=== PATIENT | female | born 1970 | race Caucasian/White ===

== ENCOUNTER 2017-10-02 18:22 | Emergency (ER) | payer MEDICAID ==
[~2017-10-02 18:22] MED LIST: OXYC1SOL5 PO; prempro PO
[2017-10-02 19:10] VITALS: BP 158/72; PULSE 108; RESP 18; TEMP 98.8; O2SAT 98
--- NOTE | 2017-10-02 19:29 | PD ---
HPI Chief Complaint: Abdominal Pain Time Seen by Provider: 19:16 Travel History International Travel<30 days: No Contact w/Intl Traveler<30days: No Traveled to known affect area: No History of Present Illness HPI 47-year-old female here for evaluation of right-sided rib/flank pain as well as headache. The patient reports having this right rib pain/right upper quadrant abdominal pain/right flank pain for about a month. Initially the symptoms were intermittent, now the pain is constant. She describes the pain as sharp, moderate, worse with movements. No fevers or chills. No nausea or vomiting. No hemoptysis. No dyspnea. No recent travel or immobilization. No history of DVT or PE. Patient reports history of cholecystectomy and total abdominal hysterectomy. No other abdominal surgeries. She states that since yesterday she has been having an intermittent her head. She states the sensation is currently mild. PFSH Past Medical History Medical History: Denies Significant Hx Cancer: No Cardiovascular Problems: No Diabetes: No Diminished Hearing: No Endocrine: No Gastrointestinal Disorders: Yes (GALLSTONES) Genitourinary: No Hepatitis: No Hiatal Hernia: No Immune Disorder: No Medical other: No Musculoskeletal: No Neurologic: No Psychiatric: No Reproductive: Yes (MASS ON OVARY) Respiratory: No Thyroid Disease: No Tetanus Vaccination: Unknown Influenza Vaccination: No ?: Not : 1 Para: 1 Past Surgical History Abdominal Surgery: Yes (CHOLECYSTECTOMY) Body Medical Devices: NONE Cardiac Surgery: No Section: Yes (x1) Cholecystectomy: Yes Ear Surgery: No Endocrine Surgery: No Eye Surgery: No Genitourinary Surgery: No Gynecologic Surgery: Yes ( 1987) Hysterectomy: Yes Oral Surgery: No Social History Alcohol Use: No Tobacco Use: No Substance Use: No Allergies-Medications (Allergen,Severity, Reaction): Coded Allergies: No Known Allergies (Verified Adverse Reaction, Unknown, 10/02/17) Reported Meds & Prescriptions Reported Meds & Active Scripts Active No Active Prescriptions or Reported Medications Review of Systems Except as stated in HPI: all other systems reviewed are Neg Physical Exam Narrative GENERAL: Well-developed, well-nourished, overweight, comfortable, no apparent distress. SKIN: Focused skin assessment warm/dry. No rash. HEAD: Atraumatic. Normocephalic. EYES: Pupils equal and round. No scleral icterus. No injection or drainage. ENT: Mucous membranes pink and moist. NECK: Trachea midline. No JVD. CARDIOVASCULAR: Regular rate and rhythm. RESPIRATORY: No accessory muscle use. Clear to auscultation. Breath sounds equal bilaterally. GASTROINTESTINAL: Abdomen soft, nondistended. Mild epigastric and right upper quadrant tenderness without peritoneal signs. Rest of abdomen is soft and nontender. Normal bowel sounds. No hernias. MUSCULOSKELETAL: No obvious deformities. No clubbing. No cyanosis. No edema. Mild right CVA tenderness. No left CVA tenderness. NEUROLOGICAL: Awake and alert. No obvious cranial nerve deficits. Motor grossly within normal limits. Normal speech. PSYCHIATRIC: Appropriate mood and affect; insight and judgment normal. Data Data Last Documented VS Vital Signs Date Time Temp Pulse Resp B/P (MAP) Pulse Ox O2 Delivery O2 Flow Rate FiO2 10/02/17 19:35 16 100 Room Air 10/02/17 19:10 98.8 108 158/72 (100) Orders Orders Electrocardiogram (10/02/17 19:25) Complete Blood Count With Diff (10/02/17 19:25) Comprehensive Metabolic Panel (10/02/17 19:25) Prothrombin Time / Inr (Pt) (10/02/17 19:25) Act Partial Throm Time (Ptt) (10/02/17 19:25) Troponin I (10/02/17 19:25) Lipase (10/02/17 19:25) Ecg Monitoring (10/02/17 19:25) Bilateral Bp Monitoring (10/02/17 19:25) Iv Access Insert/Monitor (10/02/17 19:25) Oximetry (10/02/17 19:25) Oxygen Administration (10/02/17 19:25) Sodium Chloride 0.9% Flush (Ns Flush) (10/02/17 19:30) Ct Pulmonary Angiogram (10/02/17 19:25) Chest, Pa & Lat (10/02/17 19:25) Ed Urine Pregnancytest Poc (10/02/17 19:25) Ct Abd/Pel W Iv Contrast(Rout) (10/02/17 ) Urinalysis - C+S If Indicated (10/02/17 19:25) Metoclopramide Inj (Reglan Inj) (10/02/17 19:30) Ketorolac Inj (Toradol Inj) (5/29/18 19:30) Iohexol 350 Inj (Omnipaque 350 Inj) (10/02/17 20:30) Labs Laboratory Tests Test 10/02/17 19:20 10/02/17 19:30 Urine Color YELLOW Urine Turbidity HAZY Urine pH 5.5 Urine Specific [place] 1.030 Urine Protein TRACE mg/dL Urine Glucose (UA) NEG mg/dL Urine Ketones NEG mg/dL Urine Occult Blood SMALL Urine Nitrite NEG Urine Bilirubin NEG Urine Urobilinogen LESS THAN 2.0 MG/DL Urine Leukocyte Esterase NEG Urine RBC LESS THAN 1 /hpf Urine WBC 1 /hpf Urine Squamous Epithelial Cells 4 /hpf Urine Bacteria OCC /hpf Urine Hyaline Casts 2 /lpf Urine Mucus MOD /lpf Microscopic Urinalysis Comment CULT NOT INDICATED White Blood Count 9.7 TH/MM3 Red Blood Count 4.93 MIL/MM3 Hemoglobin 14.2 GM/DL Hematocrit 41.7 % Mean Corpuscular Volume 84.5 FL Mean Corpuscular Hemoglobin 28.8 PG Mean Corpuscular Hemoglobin Concent 34.1 % Red Cell Distribution Width 13.5 % Platelet Count 349 TH/MM3 Mean Platelet Volume 8.7 FL Neutrophils (%) (Auto) 66.6 % Lymphocytes (%) (Auto) 24.3 % Monocytes (%) (Auto) 7.0 % Eosinophils (%) (Auto) 1.4 % Basophils (%) (Auto) 0.7 % Neutrophils # (Auto) 6.5 TH/MM3 Lymphocytes # (Auto) 2.4 TH/MM3 Monocytes # (Auto) 0.7 TH/MM3 Eosinophils # (Auto) 0.1 TH/MM3 Basophils # (Auto) 0.1 TH/MM3 CBC Comment DIFF FINAL Differential Comment Prothrombin Time 10.4 SEC Prothromb Time International Ratio 1.0 RATIO Activated Partial Thromboplast Time 29.5 SEC Blood Urea Nitrogen 13 MG/DL Creatinine 0.90 MG/DL Random Glucose 89 MG/DL Total Protein 8.5 GM/DL Albumin 4.0 GM/DL Calcium Level 8.9 MG/DL Alkaline Phosphatase 145 U/L Aspartate Amino Transf (AST/SGOT) 24 U/L Alanine Aminotransferase (ALT/SGPT) 26 U/L Total Bilirubin 0.3 MG/DL Sodium Level 139 MEQ/L Potassium Level 3.6 MEQ/L Chloride Level 103 MEQ/L Carbon Dioxide Level 26.2 MEQ/L Anion Gap 10 MEQ/L Estimat Glomerular Filtration Rate 67 ML/MIN Troponin I LESS THAN 0.02 NG/ML Lipase 87 U/L [facility] Medical Decision Making Medical Screen Exam Complete: Yes Emergency Medical Condition: Yes Medical Record Reviewed: Yes Interpretation(s) EKG: Sinus, rate 90, normal axis, normal intervals, no acute ischemic abnormality. Differential Diagnosis Nephrolithiasis, ureterolithiasis, pyelonephritis, UTI, hepatobiliary disease, pancreatitis, PE, pneumonia, musculoskeletal pain, SAH/meningitis/encephalitis unlikely Narrative Course Initial vital signs show heart rate 108, blood pressure 158/72, pulse ox 90% on room air, oral temp of 98.8F. EKG shows a heart rate of 90. CBC is unremarkable. CMP is unremarkable. Lipase is 87. Cardiac enzymes are negative. UA: Hazy urine, small occult blood, occasional bacteria, moderate mucus, negative nitrites, negative leukocyte esterase, culture not indicated CT abdomen pelvis: CONCLUSION: 1. A few scattered diverticula are seen along the sigmoid colon. No focal inflammatory changes. 2. Status post cholecystectomy. 3. Mild bony degenerative changes. CT pulmonary angiogram: CONCLUSION: 1. No evidence of PE. 2. No acute pulmonary infiltrates. Patient was made aware of all findings. She was given a liter of normal saline IV, IV Toradol, and IV Reglan, and on reassessment she states she feels better. She is overall very well-appearing. She is provided a copy of her CT reports. She is stable for discharge home outpatient follow-up with her primary care physician this week. She was advised on when to return to the emergency department. She verbalizes understanding and agreement with plan. Diagnosis Primary Impression: Right flank pain Additional Impression: Cephalgia Qualified Codes: R51 - Headache Referrals: Primary Care Physician 3 days Additional Instructions: Follow-up with your primary care physician this week. Return to the emergency department for worsening symptoms or any other concerns. Scripts Naproxen (Naproxen) 500 Mg Tab 500 MG PO BID for 7 Days, #14 TAB 0 Refills Prov: Suhail Fair MD 10/02/17 Disposition: 01 DISCHARGE HOME Condition: Stable Suhail Fair MD October 02, 2017 19:29
[2017-10-02] MEDS ORDERED: SODIUM CHLORIDE 0.9% FLUSH 10 ML FLUSH IVF PRN (19:30)
[2017-10-02] MEDS ORDERED: KETOROLAC TROMETHAMINE 30 MG/ML (IVP) VIAL IV PUSH ONE (19:30)
[2017-10-02] MEDS ORDERED: METOCLOPRAMIDE HCL 10 MG/2 ML VIAL IV PUSH ONE (19:30)
[2017-10-02 19:35] VITALS: RESP 16; O2SAT 100
--- NOTE | 2017-10-02 20:11 | RADRPT ---
EXAM DATE: 10/02/2017 7:45 PM EDT AGE/SEX: 47 years / Female INDICATIONS: Chest and upper abdomen pain. CLINICAL DATA: This is the patient's initial encounter. Patient reports that signs and symptoms have been present for 1 week and indicates a pain score of 8/10. MEDICAL/SURGICAL HISTORY: None. . Cholecystectomy. section. COMPARISON: No prior [place] exams available for comparison. FINDINGS: PA and lateral views of the chest demonstrate the lungs to be symmetrically aerated without evidence of mass, infiltrate or effusion. The cardiomediastinal contours are unremarkable. Osseous structures are intact. CONCLUSION: No acute intrathoracic disease. Electronically signed by: Ernie Zeng MD 10/02/2017 8:10 PM EDT
[2017-10-02 20:13] LABS: AUTOMATED NEUTROPHIL # 6.5 TH/MM3 (1.8-7.7); BASOPHIL # 0.1 TH/MM3 (0-0.2); BASOPHIL % 0.7 % (0.0-2.0); EOSINOPHIL # 0.1 TH/MM3 (0-0.4); EOSINOPHIL % 1.4 % (0.0-4.0); HEMATOCRIT 41.7 % (35.0-46.0); HEMOGLOBIN 14.2 GM/DL (11.6-15.3); LYMPH % 24.3 % (9.0-44.0); LYMPHOCYTE # 2.4 TH/MM3 (1.0-4.8); MEAN CELL VOLUME 84.5 FL (80.0-100.0); MEAN CORPUSCULAR HEMOGLOBIN 28.8 PG (27.0-34.0); MEAN CORPUSCULAR HGB CONC 34.1 % (32.0-36.0); MEAN PLATELET VOLUME 8.7 FL (7.0-11.0); MONOCYTE # 0.7 TH/MM3 (0-0.9); NEUT % 66.6 % (16.0-70.0); PLATELET COUNT 349 TH/MM3 (150-450); RED BLOOD COUNT 4.93 MIL/MM3 (4.00-5.30); RED CELL DISTRIBUTION WIDTH 13.5 % (11.6-17.2); WHITE BLOOD COUNT 9.7 TH/MM3 (4.0-11.0)
[2017-10-02 20:15] LABS: BACTERIA, URINE OCC /hpf; BILIRUBIN, URINE NEG (NEG); BLOOD, URINE SMALL (NEG); GLUCOSE,URINE NEG (NEG); HYALINE CAST, URINE 2 /lpf (RARE); KETONE, URINE NEG (NEG); MUCUS URINE MOD /lpf (OCC); NITRITE,URINE NEG (NEG); PH, URINE 5.5 (5.0-8.5); SQUAMOUS EPITHELIAL CELL URINE 4 /hpf (0-5); URINE COLOR YELLOW (YELLW/STRAW); URINE LEUKOCYTE ESTERASE NEG (NEG)
[2017-10-02] MEDS ORDERED: IOHEXOL 350 MG/ML 10 ML VIAL (for RAD DIAG) IVCONTRAST ONE (20:30)
[2017-10-02 20:34] LABS: AST (GOT) 24 U/L (15-37); BICARBONATE 26.2 MEQ/L (21.0-32.0); BLOOD UREA NITROGEN 13 MG/DL (7-18); CALCIUM 8.9 MG/DL (8.5-10.1); CHLORIDE 103 MEQ/L (98-107); GLOMERULAR FILTRATION RATE 67 ML/MIN (>89); GLUCOSE,RANDOM 89 MG/DL (74-106); SODIUM (NA) 139 MEQ/L (136-145)
[2017-10-02 20:35] LABS: ALT (GPT) 26 U/L (10-53)
[2017-10-02 20:39] LABS: ALKALINE PHOSPHATASE 145 U/L (45-117); TOTAL BILIRUBIN ADULT 0.3 MG/DL (0.2-1.0); TOTAL PROTEIN 8.5 GM/DL (6.4-8.2); TROPONIN I LESS THAN 0.02 NG/ML (0.02-0.05)
[2017-10-02 20:43] LABS: PROTHROMBIN TIME - PATIENT 10.4 SEC (9.8-11.6)
--- NOTE | 2017-10-02 20:55 | RADRPT ---
EXAM DATE: 10/02/2017 8:49 PM EDT AGE/SEX: 47 years / Female INDICATIONS: Chest and abdomen pain. CLINICAL DATA: This is the patient's initial encounter. Patient reports that signs and symptoms have been present for 1 day and indicates a pain score of 4/10. MEDICAL/SURGICAL HISTORY: . ovarian cyst Hysterectomy. Cholecystectomy. section. ORAL CONTRAST: No oral contrast ingested. RADIATION DOSE: 18.42 CTDI (mGy) COMPARISON: No prior [place] exams available for comparison. TECHNIQUE: Multiple contiguous axial images were obtained through the abdomen and pelvis following b olus infusion of 100 ml Omnipaque 350 (iohexol) nonionic water-soluble contrast as a cumulative dos e for multiple exams. No oral contrast ingested. Using automated exposure control and adjustment of the mA and/or kV according to patient size, the radiation dose was kept as low as reasonably achievab le to obtain optimal diagnostic quality images. FINDINGS: Lower Lungs: The visualized lower lungs are clear. Liver: The liver has a homogeneous density without space-occupying lesion. There is no dilation of th e biliary tree. Gallbladder removed. Spleen: Homogeneous density without enlargement. Pancreas: Unremarkable without mass or calcification. Kidneys: Normal in size and shape. No evidence of mass or hydronephrosis. Adrenal Glands: Unremarkable. Aorta: The aorta and proximal iliac vessels are grossly unremarkable without aneurysmal dilation. Bowel/Mesentery: The bowel loops are grossly unremarkable. The cecum and sigmoid colon have a normal configuration. The appendix is unremarkable. A few small scattered diverticula are seen along the si gmoid colon without inflammatory changes. There is stool in the colon. Abdominal Wall: Intact. Retroperitoneum: No evidence of adenopathy in the retrocrural, para-aortic, or deep pelvic regions. Bladder: Contours are smooth. Reproductive Organs: No abnormal masses or calcifications seen. Inguinal: The inguinal region is unremarkable without evidence of adenopathy. Bony Structures: Mild primary degenerative changes. CONCLUSION: 1. A few scattered diverticula are seen along the sigmoid colon. No focal inflammatory changes. 2. Status post cholecystectomy. 3. Mild bony degenerative changes. Electronically signed by: Ernie Zeng MD 10/02/2017 8:54 PM EDT
--- NOTE | 2017-10-02 20:57 | RADRPT ---
EXAM DATE: 10/02/2017 8:48 PM EDT AGE/SEX: 47 years / Female INDICATIONS: Chest and abdomen pain. CLINICAL DATA: This is the patient's initial encounter. Patient reports that signs and symptoms have been present for 1 day and indicates a pain score of 4/10. MEDICAL/SURGICAL HISTORY: . Ovarian mass Hysterectomy. Cholecystectomy. RADIATION DOSE: 9.04 CTDI (mGy) COMPARISON: No prior [place] exams available for comparison. TECHNIQUE: Volumetric scanning was performed using a multi-row detector CT scanner during bolus infu river of 100 ml Omnipaque 350 (iohexol) nonionic water-soluble contrast as a cumulative dose for mult iple exams. The data was post processed with a variety of visualization algorithms including full vol ume maximum intensity projection and sliding thin slab reformation. Using automated exposure control and adjustment of the mA and/or kV according to patient size, radiation dose was kept as low as reas onably achievable to obtain optimal diagnostic quality images. FINDINGS: Pulmonary Arteries: No filling defects are seen in the pulmonary arteries out to the subsegmental ve ssels. The left and right pulmonary arteries are normal in diameter. Lung: No infiltrates seen. Effusion: None. Mediastinum: No evidence of mediastinal or hilar adenopathy. Other: The axilla is unremarkable. CONCLUSION: 1. No evidence of PE. 2. No acute pulmonary infiltrates. Electronically signed by: Ernie Zeng MD 10/02/2017 8:55 PM EDT
[2017-10-02] MEDS ORDERED: NAPR500T2 PO (21:13)
--- NOTE | 2017-10-03 14:09 | EKG ---
Date Performed: 10/02/2017 Time Performed: 19:32:00 PTAGE: 47 years EKG: Sinus rhythm NORMAL ECG PREVIOUS TRACING : 11/02/1996 01.26 DOCTOR: Nitin Jean Interpretating Date/Time 10/03/2017 14:06:32
== END 2017-10-02 21:48 | disposition home or self-care (01) ==
LOC: NEPC 18:22
DX: R10.11 Right upper quadrant pain (principal); R51 Headache; R07.9 Chest pain, unspecified; K57.30 Diverticulosis of large intestine without perforation or abscess without bleeding; Z90.49 Acquired absence of other specified parts of digestive tract
CPT/HCPCS: 71046; 71275; 74177; 80053; 81001; 83690; 84484; 84703; 85025; 85610; 85730; 93005; 96374; 96375; 99285; J1885; J2765; Q9967